=== PATIENT | male | born 1960 | race Caucasian/White ===

== ENCOUNTER 2021-05-06 13:54 | Emergency (ER) | payer BC ==
[2021-05-06] MEDS ORDERED: Aspirin 81 MG Tab.Chew PO ONE (14:20)
[2021-05-06 15:16] LABS: BLOOD UREA NITROGEN,BUN 12 mg/dL (7.0-18.0); CARBON DIOXIDE,CO2 26.1 mmol/L (21.0-32.0); CHLORIDE,CL 104 mmol/L (98-107); GLUCOSE RANDOM 122 mg/dL (74-106); POTASSIUM,K 3.3 mmol/L (3.5-5.1); SODIUM,NA 141 mmol/L (136-148)
== END 2021-05-06 20:59 | disposition home or self-care (01) ==
LOC: MW.ED 13:54
DX: R07.89 Other chest pain (principal); C95.90 Leukemia, unspecified not having achieved remission; D64.9 Anemia, unspecified; Z88.1 Allergy status to other antibiotic agents; Z88.7 Allergy status to serum and vaccine; Z88.2 Allergy status to sulfonamides; Z91.011 Allergy to milk products
CPT/HCPCS: 36415; 36430; 71045; 80053; 81001; 84484; 85014; 85018; 85025; 85379; 86850; 86900; 86901; 86920; 93005; 99285; A9270; P9016; 93010; 99284